=== PATIENT | male | born 1930 | race Caucasian/White ===

== ENCOUNTER → 2016-07-20 | Outpatient (CLI) | payer MEDICARE, BC ==
[2016-07-20 11:22] LABS: ALT 53 U/L (21-72); AST 32 U/L (17-59); Cholesterol 181 mg/dL (<200); HDL Cholesterol 48 mg/dL (40-60); Triglycerides 164 mg/dL (<150)
== END | disposition home or self-care (01) ==
LOC: LABWHC1 09:37
PROVIDERS: ATTEND Internal Medicine Interventional Cardiology
DX: E78.2 Mixed hyperlipidemia (principal)
CPT/HCPCS: 36415; 80061; 84450; 84460

== ENCOUNTER 2016-10-11 18:54 | Emergency (ER) | payer MEDICARE, BC ==
[2016-10-11 19:13] VITALS: TEMP 98.1
[2016-10-11] MEDS ORDERED: IPRATROPIUM-ALBUTEROL 3 ML NEB INHALATION STA (19:23)
--- NOTE | 2016-10-11 19:29 | ED ---
General Adult HPI - General Chief complaint: Shortness of Breath Stated complaint: OSMANI Time Seen by Provider: 10/11/16 19:05 Source: patient, family, EMS, RN notes reviewed Mode of arrival: EMS Limitations: no limitations - History of Present Illness Initial comments: Chief complaint history of present illness an 86-year-old male here with his significant other. The patient reports both of them have had bronchitis. She was treated he was not. He states that 7 days ago he started feeling short of breath. 5 days ago he had a fever of 101.5 that went away with medications no fever since then. Although he has report having a thick cough that is nonproductive but when clear. Denies pain or fever at this time. - Related Data Home Medications Medication Instructions Recorded Confirmed Diltiazem HCl [Diltiazem 24Hr ER] 120 mg PO DAILY 10/11/16 10/11/16 Furosemide [Lasix] 20 mg PO DAILY PRN 10/11/16 10/11/16 HYDROcodone/APAP 7.5-325MG [[place] 1 tab PO Q6HR PRN 10/11/16 10/11/16 7.5-325] Omeprazole [PriLOSEC] 20 mg PO DAILY 10/11/16 10/11/16 Simvastatin [Zocor] 40 mg PO HS 10/11/16 10/11/16 Tamsulosin HCl [Flomax] 0.4 mg PO HS 10/11/16 10/11/16 Warfarin [Coumadin] 2.5 mg PO HS 10/11/16 10/11/16 Previous Rx's Medication Instructions Recorded Albuterol Inhaler [Ventolin Hfa 2 puff INHALATION Q4HR PRN #1 10/11/16 Inhaler] inhaler Azithromycin [Zithromax Z-pack] 250 mg PO DIRECTED #6 tab 10/11/16 methylPREDNISolone Dose Pack 4 mg PO DIRECTED #21 package 10/11/16 [Medrol Dose Pack] Allergies Allergy/AdvReac Type Severity Reaction Status Date / Time ampicillin Allergy Rash/Hives Verified 10/11/16 19:20 clindamycin Allergy Rash/Hives Verified 10/11/16 19:20 metoprolol Allergy Anaphylaxis Verified 10/11/16 19:20 sulfamethoxazole Allergy Rash/Hives Verified 10/11/16 19:20 [From Bactrim] trimethoprim [From Bactrim] Allergy Rash/Hives Verified 10/11/16 19:20 Review of Systems ROS Statement: Those systems with pertinent positive or pertinent negative responses have been documented in the HPI. Review of systems no visual acuity changes no headache no stiff neck no chest pain but he does feel short of breath has a productive sounding cough without producing any phlegm. Mildly congested. No chest pain. No GI/ problems no neuro deficits. All systems reviewed were otherwise negative. And his past medical problems significant for A. fib on Coumadin, COPD, hypertension, hypercholesterolemia and hypothyroidism. Surgeries include left rotator cuff and one cardiac stent. The patient's family history no cancers. Patient has ALLERGIES to penicillin and Bactrim and clindamycin as well as metoprolol. Patient denies smoking denies drinking. 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 ROS Other: All systems not noted in ROS Statement are negative. Past Medical History Past Medical History: Atrial Fibrillation, COPD, Deep Vein Thrombosis (DVT), Mitral Valve Prolapse (MVP) History of Any Multi-Drug Resistant Organisms: None Reported Past Surgical History: Ablation Additional Past Surgical History / Comment(s): heart stent, Rotator cuff, Zenkers Diverticulum, Past Psychological History: No Psychological Hx Reported Smoking Status: Never smoker Past Alcohol Use History: None Reported Past Drug Use History: None Reported General Exam - General Exam Comments Initial Comments: General: The patient is awake and alert, complains of slight shortness of breath with history of COPD and a thick nonproductive cough. Vital signs afebrile. Temperature 98.1 pulse 109 respiratory rate 28 pulse ox 95% room air blood pressure 120/63 Eye: Pupils are equal, round and reactive to light, extra-ocular movements are intact ; there is normal conjunctiva bilaterally. No signs of icterus. Ears, nose, mouth and throat: There are moist mucous membranes and no oral lesions. Neck: The neck is supple, there is no tenderness , no anterior cervical lymphadenopathy. Cardiovascular: Irregular rate and rhythm. Heart rate slowed during examination down to approximately 90. No murmur appreciated history of chronic A. fib on Coumadin Respiratory: Partial breath sounds crepitant rales alternating with some wheezing appreciated throughout all lung gross. Frequent cough Gastrointestinal: Soft, non-distended, non-tender abdomen without masses or organomegaly noted. There is no rebound or guarding present. No CVA tenderness. Bowel sounds are unremarkable. Back: There is no tenderness to palpation in the midline. There is no obvious deformity. No rashes noted Musculoskeletal: Normal ROM, no tenderness, There is no pedal edema. There is no calf tenderness or swelling. Sensation intact. Pulses equal bilaterally 2+. No leg pain Neurological: No neuro deficits, good balance. Skin: Skin is warm and dry and no rashes or lesions are noted. Limitations: no limitations Course Vital Signs 10/11/16 10/11/16 10/11/16 19:01 19:34 19:41 Temperature 98.1 F Pulse Rate 109 H 87 82 Respiratory 28 H Rate Blood Pressure 128/63 O2 Sat by Pulse 95 Oximetry Medical Decision Making - Medical Decision Making Chest x-ray done AP and lateral view and compared to chest x-ray is done June 30 of last year. Today there is a small amount of left lower lobe atelectasis. Otherwise no evidence of any significant cardiomegaly, no pneumothorax. Bony structures appear to be normal. The radiologist's final impression Disposition Clinical Impression: Bronchial asthma Disposition: HOME SELF-CARE Condition: Fair Instructions: Chronic Bronchitis (ED), Asthma (ED) Additional Instructions: Take adequate fluids. Take antibiotics as directed until completed, do not save antibiotics. Complete the Medrol dosepak, use inhaler as directed. 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
[2016-10-11] MEDS ORDERED: predniSONE 20 MG TAB PO STA (20:15)
--- NOTE | 2016-10-11 20:18 | XR ---
EXAMINATION TYPE: XR chest 2V DATE OF EXAM: 10/11/2016 7:56 PM COMPARISON: Prior chest x-ray June 29, 2016. HISTORY: History of COPD presents with productive cough. TECHNIQUE: Frontal and lateral views of the chest are obtained. FINDINGS: Sternal wires are redemonstrated. There is chronic parenchymal change without suspicious ne w focal air space opacity, pleural effusion, or pneumothorax seen. The cardiac silhouette size is st able and upper limits of normal. Metallic mitral valve ring is redemonstrated. The osseous structur es are intact. IMPRESSION: Chronic changes without acute pulmonary process.
[2016-10-11 20:35] VITALS: BP 111/65; PULSE 95; RESP 20
== END 2016-10-11 20:34 | disposition home or self-care (01) ==
LOC: EC 18:54
DX: J45.909 Unspecified asthma, uncomplicated (principal); I48.91 Unspecified atrial fibrillation; J44.9 Chronic obstructive pulmonary disease, unspecified; Z86.718 Personal history of other venous thrombosis and embolism; Z79.01 Long term (current) use of anticoagulants; Z79.899 Other long term (current) drug therapy; Z88.1 Allergy status to other antibiotic agents; Z88.2 Allergy status to sulfonamides; Z88.8 Allergy status to other drugs, medicaments and biological substances
CPT/HCPCS: 94640; 71020; 99285; J7512

== ENCOUNTER → 2017-01-11 | Outpatient (CLI) | payer MEDICARE, BC ==
[2017-01-11 08:55] LABS: CH 32.7; CHCM 33.2; HCT 42.1 % (39.0-53.0); HDW 2.54; HGB 14.2 gm/dL (13.0-17.5); MCH 33.3 pg (25.0-35.0); MCHC 33.6 g/dL (31.0-37.0); MCV 98.9 fL (80.0-100.0); Mean Platelet Volume 7.3; RBC 4.25 m/uL (4.30-5.90); RDW 13.7 % (11.5-15.5); WBC 7.1 k/uL (3.8-10.6)
[2017-01-11 09:36] LABS: ALT 55 U/L (21-72); AST 44 U/L (17-59); Alkaline Phosphatase 96 U/L (38-126); Anion Gap 11 mmol/L; Blood Urea Nitrogen 19 mg/dL (9-20); Calcium 9.2 mg/dL (8.4-10.2); Carbon Dioxide 27 mmol/L (22-30); Chloride 105 mmol/L (98-107); Cholesterol 198 mg/dL (<200); Glucose 119 mg/dL (74-99); HDL Cholesterol 49 mg/dL (40-60); Non-African American GFR(MDRD) >60 (>60 ml/min/1.73 sqM); Potassium 4.2 mmol/L (3.5-5.1); Sodium 143 mmol/L (137-145); Total Bilirubin 0.8 mg/dL (0.2-1.3); Total Protein 6.9 g/dL (6.3-8.2); Triglycerides 203 mg/dL (<150)
== END ==
LOC: LABWHC1 08:06
PROVIDERS: ATTEND Internal Medicine Interventional Cardiology
DX: E78.2 Mixed hyperlipidemia (principal); I25.10 Atherosclerotic heart disease of native coronary artery without angina pectoris
CPT/HCPCS: 36415; 80053; 80061; 85027

== ENCOUNTER → 2017-07-19 | Outpatient (CLI) | payer MEDICARE, BC ==
[2017-07-19 11:32] LABS: ALT 51 U/L (21-72); AST 40 U/L (17-59); Cholesterol 158 mg/dL (<200); Creatine Kinase 29 U/L (55-170); HDL Cholesterol 44 mg/dL (40-60); LDL Cholesterol,Calculated 86 mg/dL (0-99); Triglycerides 141 mg/dL (<150)
== END | disposition home or self-care (01) ==
LOC: LABWHC1 10:52
PROVIDERS: ATTEND Internal Medicine Interventional Cardiology
DX: E78.2 Mixed hyperlipidemia (principal)
CPT/HCPCS: 36415; 80061; 82550; 84450; 84460

== ENCOUNTER → 2018-02-13 | Outpatient (CLI) | payer MEDICARE, BC ==
[2018-02-13 10:07] LABS: Albumin 3.4 g/dL (3.5-5.0); Calcium 8.7 mg/dL (8.4-10.2); Potassium 4.4 mmol/L (3.5-5.1); Total Bilirubin 0.5 mg/dL (0.2-1.3)
== END | disposition home or self-care (01) ==
LOC: LABWHC1 09:01
PROVIDERS: ATTEND Internal Medicine Interventional Cardiology
DX: E78.2 Mixed hyperlipidemia (principal)
CPT/HCPCS: 36415; 80053; 80061